=== PATIENT | female | born 1960 | race Caucasian/White ===

== ENCOUNTER 2016-12-30 19:49 | Emergency (ER) | payer OTHER ==
[2016-12-30 20:42] LABS: URINE BILIRUBIN NEGATIVE (NEGATIVE); URINE BLOOD TRACE (NEGATIVE); URINE GLUCOSE (UA) NORMAL (NORMAL); URINE KETONE NEGATIVE (NEGATIVE); URINE LEUKOCYTE ESTERASE TRACE (NEGATIVE); URINE NITRATE NEGATIVE (NEGATIVE); URINE PROTEIN TRACE (NEGATIVE); UROBILINOGEN NORMAL mg/dL (<1.0)
[2016-12-30 20:56] LABS: URINE RBC 0-5 /[HPF] (0-2); URINE SQUAMOUS EPITHELIAL CELL 0-10 /[HPF] (NONE SEEN); URINE WBC 0-5 /[HPF] (0-5)
[2016-12-30 21:02] LABS: BASO # 0.1 10_X3_uL (0.0-0.1); BASO % 0.6 % (0.1-1.2); EOS # 0.1 10_X3_uL (0.0-0.4); GRAN # 7.6 10_X3_uL (1.6-6.1); GRAN % 60.7 % (34.0-71.1); HEMATOCRIT 39.4 % (34-45); HEMOGLOBIN 12.6 g/dL (11.2-15.7); LYMPH # 3.6 10_X3_uL (1.2-3.7); LYMPH % 29.2 % (19.3-51.7); MEAN CORPUSCULAR HEMOGLOBIN 31.3 pg (27.0-33.0); MEAN PLATELET VOLUME 11.6 fl (7.5-11.5); MONO # 1.1 10_X3_uL (0.2-0.9); MONO % 8.5 % (4.7-12.5); PLATELET COUNT 271 x10_3/uL (182-369); RED BLOOD COUNT 4.02 x10_6/uL (3.9-5.2); RED CELL DISTRIBUTION WIDTH 13.8 % (11.7-14.4); WHITE BLOOD COUNT 12.5 x10_3/uL (4.0-10.0)
[2016-12-30 21:23] LABS: ALBUMIN 3.9 gm/dL (3.4-5.0); BILIRUBIN,TOTAL 0.18 mg/dL (0.0-1.0); CALCIUM 9.4 mg/dL (8.7-10.7); CREATININE 1.4 mg/dL (0.6-1.3); POTASSIUM 4.2 mmol/L (3.5-5.1); TOTAL PROTEIN 6.6 gm/dL (6.4-8.2)
[2016-12-30 21:23] LABS: ARTERIAL BLD GAS O2 SATURATION 90.3 % (94-98); ARTERIAL BLOOD GAS BASE EXCESS -0.7 mmol/L (-2.0-3.0); ARTERIAL BLOOD GAS HCO3 26.1 mmol/L (22-26); ARTERIAL BLOOD GAS PCO2 52.2 mmHg (32-45); ARTERIAL BLOOD GAS pH 7.32 (7.35-7.45)
[2016-12-30 23:05] LABS: ARTERIAL BLOOD GAS BASE EXCESS 1.3 mmol/L (-2.0-3.0); ARTERIAL BLOOD GAS HCO3 27.7 mmol/L (22-26); ARTERIAL BLOOD GAS PCO2 54.9 mmHg (32-45); ARTERIAL BLOOD GAS pH 7.32 (7.35-7.45)
== END 2016-12-31 | disposition short-term general hospital (02) ==
LOC: ER 19:49
PROVIDERS: Emergency Medicine
DX: J44.9 Chronic obstructive pulmonary disease, unspecified (principal); R60.0 Localized edema; R06.02 Shortness of breath; M54.9 Dorsalgia, unspecified; R10.9 Unspecified abdominal pain; I10 Essential (primary) hypertension; R30.0 Dysuria; F17.210 Nicotine dependence, cigarettes, uncomplicated; Z79.899 Other long term (current) drug therapy; Z79.891 Long term (current) use of opiate analgesic; Z90.710 Acquired absence of both cervix and uterus
CPT/HCPCS: 36415; 36600; 70450; 71010; 74150; 80053; 80307; 81001; 82550; 82553; 82803; 83880; 85025; 93005; 94660; 94664; 96374; 99070; 99285-25